=== PATIENT | male | born 1995 | race Caucasian/White ===

== ENCOUNTER → 2017-09-22 | Outpatient (CLI) | payer OTHER ==
--- NOTE | 2017-09-22 15:42 | DIAGNOSTIC IMAGING REPORT ---
R ANKLE MIN 3 VIEWS CLINICAL HISTORY: 21 years-old Male presenting with RIGHT DISTAL FIBULA PAIN. TECHNIQUE: Frontal, mortise, and lateral views of the right ankle were obtained. COMPARISON: None. FINDINGS: Ankle mortise intact. Os peroneum noted. No acute fracture or malalignment. No advanced degenerative change. No radiographic soft tissue abnormality. IMPRESSION: No acute osseous injury. Electronically signed by: Nikita Fonseca M.D. 09/22/2017 3:41 PM Dictated Date/Time: 09/22/2017 3:40 PM
== END | disposition home or self-care (01) ==
LOC: C.RDSM 15:22
PROVIDERS: ATTEND Family Medicine
DX: M25.571 Pain in right ankle and joints of right foot (principal)

== ENCOUNTER → 2017-10-04 | Outpatient (CLI) | payer OTHER ==
--- NOTE | 2017-10-04 16:18 | DIAGNOSTIC IMAGING REPORT ---
R LOWER EXT JOINT WITHOUT CLINICAL HISTORY: 21 years-old Male with RT ANKLE PAIN. Acute right ankle pain, most pronounced laterally. COMPARISON: Right ankle radiographs 09/22/2017 TECHNIQUE: Multiplanar, multi sequence MRI of the right ankle was performed without contrast. FINDINGS: Oil marker is placed superficial to the lateral malleolus. LATERAL LIGAMENT COMPLEX: The anterior talofibular ligament, calcaneofibular ligament and posterior talofibular ligaments are intact. SYNDESMOTIC LIGAMENTS: The anterior-inferior tibiofibular ligament, interosseous membrane and posterior-inferior tibiofibular ligaments are intact. DELTOID LIGAMENT COMPLEX: The superficial and deep components of the deltoid ligament are intact. ANTERIOR TENDONS: The tibialis anterior, extensor hallucis longus and extensor digitorum longus tendons are normal in position, morphology and signal. LATERAL TENDONS: The peroneus longus and brevis tendons are intact with minimal tendinosis of the peroneus brevis. MEDIAL TENDONS: There is trace tenosynovitis of the posterior tibialis along its posterior and inframalleolar coarse. The flexor digitorum longus and flexor hallucis longus tendons are intact. PLANTAR FASCIA: The medial and lateral bundles of the plantar fascia are normal in morphology and signal. There is no evidence of acute plantar fasciitis or tear. No evidence of plantar fascial nodules. ACHILLES TENDON: The Achilles tendon is normal in position, morphology and signal. No associated bursitis. SINUS TARSI: There is normal fat signal within the sinus tarsi. The interosseous and cervical ligaments are normal. The navicular-calcaneal (spring) ligament is without acute abnormality. TARSAL TUNNEL: There are no obstructing lesions within the tarsal tunnel. BONE MARROW: Mild periostitis about the distal fibula with mild subcutaneous edema and mild bone marrow edema of the medullary space. SOFT TISSUES: Minimal fluid within the posterior recess. IMPRESSION: 1. Oil marker placed superficial to the lateral malleolus with adjacent mild nonspecific subcutaneous edema and periostitis of the lateral aspect distal fibular metadiaphysis with mild bone marrow edema within the medullary space. These findings suggest stress response without discrete fracture line identified. 2. Minimal tendinosis of the peroneus brevis. 3. Trace tenosynovitis of the tibialis posterior. The above report was generated using voice recognition software. It may contain grammatical, syntax or spelling errors. Electronically signed by: Clark Trent M.D. 10/04/2017 4:17 PM Dictated Date/Time: 10/04/2017 4:01 PM
== END | disposition home or self-care (01) ==
LOC: C.MRIBC 14:43
PROVIDERS: ATTEND Family Medicine
DX: M25.571 Pain in right ankle and joints of right foot (principal)